=== PATIENT | female | born 1980 | race Two or more races ===

== ENCOUNTER 2017-02-09 22:12 | Emergency (ER) | payer SELFPAY ==
[~2017-02-09] VITALS: Ht 160 cm; Wt 47.6 kg
[~2017-02-09 22:12] MED LIST: BENTYL10 MG ORAL; COLACE100 MG ORAL; ONDANSETRON ODT4 MG ORAL
[2017-02-10] MEDS ORDERED: IBUPROFEN600 MG ORAL (00:48)
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
[2017-02-10 01:01] VITALS: BP 111/60
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
== END 2017-02-10 01:10 | disposition home or self-care (01) ==
LOC: EMR 02-10 01:04
DX: S30.0XXA Contusion of lower back and pelvis, initial encounter (principal); S60.221A Contusion of right hand, initial encounter; Y08.89XA Assault by other specified means, initial encounter; Y92.9 Unspecified place or not applicable
CPT/HCPCS: 72020; 99284

== ENCOUNTER 2017-04-19 21:35 | Emergency (ER) | payer SELFPAY ==
[~2017-04-19] VITALS: Ht 160 cm; Wt 47.6 kg
[~2017-04-19 21:35] MED LIST changes: +IBUPROFEN600 MG ORAL
[2017-04-19 22:10] VITALS: BP 101/61
[2017-04-19] MEDS ORDERED: PSEUDOEPHEDRINE60 MG PO (22:42)
[2017-04-19] MEDS ORDERED: FLONASE SENSIM9.9 ML NS (22:42)
--- NOTE | 2017-04-19 22:42 | Emergency Room Report ---
History of Present Illness General Chief Complaint: Fever Source: Patient Present Illness HPI This is a 36-year-old female presents with chief complaint of cough headache and fever. Onset for last 2 days. Also sinus congestion and swelling. No nausea no vomiting. Fever broke. Pain is 8 out of 10. Denies any other complaint. Allergies: Coded Allergies: No Known Allergies (Unverified , 04/15/14) Patient History Past Medical History: see triage record, old chart reviewed Past Surgical History: other Pertinent Family History: none Social History: Denies: smoking Last Menstrual Period: April Now: No Immunizations: other Reviewed Nursing Documentation: PMH: Agreed, PSxH: Agreed Nursing Documentation-PMH Hx Asthma: Yes Review of Systems Constitutional: Reports: fever Eye: Denies: eye pain, blurred vision ENT: Reports: nose congestion, Denies: ear pain, throat swelling Respiratory: Reports: cough, Denies: shortness of breath Cardiovascular: Denies: chest pain, palpitations Gastrointestinal: Denies: abdominal pain, diarrhea, nausea, vomiting Musculoskeletal: Denies: back pain, joint pain Skin: Denies: rash Neurological: Denies: headache, numbness Endocrine: Denies: increased thirst, increased urine Hematologic/Lymphatic: Denies: easy bruising All Other Systems: negative except mentioned in HPI Physical Exam Vital Signs Date Time Temp Pulse Resp B/P (MAP) Pulse Ox O2 Delivery O2 Flow Rate FiO2 04/19/17 22:03 98.2 74 16 101/61 94 Room Air 98.2 Sp02 EP Interpretation: reviewed, normal General Appearance: well appearing, no apparent distress, alert Head: normocephalic, atraumatic Eyes: bilateral eye PERRL, bilateral eye EOMI ENT: hearing grossly normal, normal pharynx, other - turbinates enlarged Neck: full range of motion, supple, no meningismus Respiratory: chest non-tender, lungs clear, normal breath sounds Cardiovascular #1: regular rate, rhythm, no murmur Gastrointestinal: normal bowel sounds, non tender, no mass, no organomegaly, no bruit, non-distended Musculoskeletal: back normal, gait/station normal, normal range of motion Psychiatric: mood/affect normal Skin: warm/dry Medical Decision Making Diagnostic Impression: Primary Impression: URI (upper respiratory infection) Qualified Codes: J06.9 - Acute upper respiratory infection, unspecified ER Course Patient with a viral infection sinus congestion. No evidence of bacterial infection, meningitis, pneumonia or other serious bacterial infection. We'll discharge home. Last Vital Signs Date Time Temp Pulse Resp B/P (MAP) Pulse Ox O2 Delivery O2 Flow Rate FiO2 04/19/17 22:03 98.2 74 16 101/61 94 Room Air 98.2 Status: unchanged Disposition: HOME, SELF-CARE Condition: Stable Scripts Fluticasone Furoate (FLONASE SENSIMIST) 9.9 Ml [place].susp 9.9 ML NS BID, #1 UNIT Prov: MICHELLE RODRIGUEZ M.D. 04/19/17 Pseudoephedrine Hcl* (SUDAFED*) 60 Mg Tablet 60 MG PO Q6H, #30 TAB Prov: MICHELLE RODRIGUEZ M.D. 04/19/17 Additional Instructions: Follow-up your DrFaisal in 7 days. Increase fluids. Return of worse. May take Motrin or Tylenol for pain. MICHELLE RODRIGUEZ M.D. Apr 19, 2017 22:42
[2017-04-19 22:53] VITALS: BP 101/61
== END 2017-04-19 22:51 | disposition home or self-care (01) ==
LOC: EMR 22:18
DX: J06.9 Acute upper respiratory infection, unspecified (principal); J45.909 Unspecified asthma, uncomplicated
CPT/HCPCS: 99284

== ENCOUNTER 2017-10-24 19:42 | Emergency (ER) | payer SELFPAY ==
[~2017-10-24] VITALS: Ht 160 cm; Wt 47.6 kg
[~2017-10-24 19:42] MED LIST changes: +FLONASE SENSIM9.9 ML NS; +PSEUDOEPHEDRINE60 MG PO
[2017-10-24 20:35] VITALS: BP 123/67
[2017-10-24] MEDS ORDERED: Norco 5mg/325mg tab ORAL ONE (21:00)
[2017-10-24] MEDS ORDERED: NORCO 5-325 TA1 EACH ORAL (21:28)
[2017-10-24] MEDS ORDERED: AUGMENTIN 875-1 EAC1 ORAL (21:28)
[2017-10-24] MEDS ORDERED: Augmentin 875mg Tab ORAL ONE (21:30)
[2017-10-24 21:36] VITALS: BP 123/67
--- NOTE | 2017-10-24 21:44 | Emergency Room Report ---
History of Present Illness General Chief Complaint: Pain Source: Patient Present Illness HPI 37-year-old female presents ED for evaluation. Patient complaining of pain and swelling to her gums for the last 5 days. Pain is throbbing, 10 out of 10, nonradiating. Denies fevers or chills. Denies cough. Denies sore throat. Denies difficulty swallowing or breathing. Denies any discharge. States that she has had multiple dental procedures in the past but none recently. No other aggravating relieving factors. Denies any other associated symptoms Allergies: Coded Allergies: No Known Allergies (Unverified , 04/15/14) Patient History Past Medical History: asthma Past Surgical History: none Pertinent Family History: none Social History: Denies: smoking, alcohol use, drug use Last Menstrual Period: 10/20/2017 Now: No : 1 Para: 1 Immunizations: UTD Reviewed Nursing Documentation: PMH: Agreed; PSxH: Agreed Nursing Documentation-PMH Past Medical History: No History, Except For Hx Asthma: Yes Review of Systems All Other Systems: negative except mentioned in HPI Physical Exam Vital Signs Date Time Temp Pulse Resp B/P (MAP) Pulse Ox O2 Delivery O2 Flow Rate FiO2 10/24/17 19:56 98.4 66 18 123/67 96 Room Air 98.4 Sp02 EP Interpretation: reviewed, normal General Appearance: no apparent distress, alert, GCS 15, non-toxic Head: normocephalic Eyes: bilateral eye normal inspection, bilateral eye PERRL ENT: TMs + canals normal, other - swelling, TTP gums left upper jaw. no fluctuance or discharge. multiple dental caries. previous fillings noted Neck: normal inspection, supple, no meningismus Respiratory: normal inspection Cardiovascular #1: normal inspection Gastrointestinal: normal inspection Rectal: deferred Genitourinary: no CVA tenderness Musculoskeletal: normal inspection Neurologic: alert, oriented x3, responsive, motor strength/tone normal, sensory intact, speech normal Psychiatric: normal inspection Skin: normal inspection Lymphatic: normal inspection Medical Decision Making Diagnostic Impression: Primary Impression: Gingivitis, acute ER Course 37-year-old female presents ED complaining of L gum pain Cracked tooth, dental abscess, cavity Patient placed in chair. When I approach the patient she was very agitated and upset, screaming. States she was waiting a long time to be seen. Patient had been ordered pain medications prior to my arrival. Once medication was given patient was placed in a room I evaluated patient at that time. Patient is more calm and cooperative. On exam there is swelling and induration to the gum of the left upper jaw. No fluctuance or discharge. There are multiple previous dental caries noted with fillings in place. No trismus. No nuchal rigidity Pain relieved after pain medication. Given Augmentin here in ED. Discussed findings with patient. We will provide referral to dental clinics. Patient is more calm and cooperative, smiling. Appreciative for the care. Diagnosis- gingivitis Stable and discharged to home prescription for [place] and augmentin. Instructed to see dentist as a walk-in this week. Return to ED if symptoms recur or worse Last Vital Signs Date Time Temp Pulse Resp B/P (MAP) Pulse Ox O2 Delivery O2 Flow Rate FiO2 10/24/17 21:36 98.4 18 123/67 96 Room Air 209.1 10/24/17 20:35 78 Status: improved Disposition: HOME, SELF-CARE Condition: Stable Scripts Hydrocodone Bit/Acetaminophen 5-325* (NORCO 5-325*) 1 Each Tablet 1 TAB ORAL Q6H PRN for For Pain, #20 TAB 0 Refills Prov: Felice Dorsey MD 10/24/17 Amoxicillin/Potassium Clav 875-125* (AUGMENTIN 875-125 TABLET*) 1 Each Tablet 1 TAB ORAL TWICE A DAY, #14 TAB Prov: Felice Dorsey MD 10/24/17 Referrals: [facility](age 2-12) - Orthodontic Clinic - Hours: Tue,Tue,, 8:15am and 1pm (new patient screening), Tu. 1pm. Emergency clinic Tuesday - Tuesday 8:30am and 1pm, Tues. 1pm. *Call to check if clinic is open; No appointment necessary for the first visit ( new patient screening), Arrive 15-30 minutes early as it is first come, first serve. [facility] INFO: New Patient Screening: Tue- 8am-1pm Tue- 9am -5pm and Tue 2pm-5pm Patient Instructions: Dental Pain, [id number] Felice Dorsey MD Oct 24, 2017 21:44
== END 2017-10-24 21:38 | disposition home or self-care (01) ==
LOC: EMR 21:00
DX: K05.00 Acute gingivitis, plaque induced (principal); J45.909 Unspecified asthma, uncomplicated
CPT/HCPCS: 99283